=== PATIENT | male | born 1950 | race Caucasian/White ===

== ENCOUNTER → 2023-01-03 10:17 | Outpatient (CLI) | payer OTHER, SELFPAY ==
[2023-01-03 11:05] LABS: Add Manual Diff / Slide Review NO; Basophils Absolute Auto 0 /uL (0-100); Eosinophils Absolute Auto 300 /uL (0-450); Eosinophils Percent Auto 7.5 % (2-4); Hematocrit 41.2 % (41-53); Hemoglobin 14.1 g/dL (13.5-17.5); Lymphocytes Absolute Auto 1100 /uL (1100-4500); Lymphocytes Percent Auto 24.8 % (25-40); Mean Corpuscular HGB Conc 34.4 % (30-36); Mean Corpuscular Hemoglobin 34.1 PG (26-34); Mean Corpuscular Volume 99.3 fL (80-100); Monocytes Absolute Auto 500 /uL (0-900); Monocytes Percent Auto 10.4 % (3-14); Neutrophils Absolute Auto 2500 /uL (1500-7000); Neutrophils Percent Auto 56.3 % (50-75); Platelet Count 207 X10^3/uL (150-400); Red Blood Cell Count 4.15 X10^6/uL (4.5-5.9); Red Cell Distribution Width 12.9 % (11.6-14.8); White Blood Cell Count 4.5 X10^3/uL (4.5-11.0)
[2023-01-03 11:30] LABS: Alanine Aminotransferase 19 IU/L (<50); Albumin Globulin Ratio 1.4 (1.0-2.8); Alkaline Phosphatase 50 U/L (38-126); Aspartate Aminotransferase 23 IU/L (17-59); BUN Creatinine Ratio 17.8 (6-22); Bilirubin Total 0.7 mg/dL (0.2-1.3); Blood Urea Nitrogen 19 mg/dL (9-20); Calcium 8.9 mg/dL (8.4-10.2); Carbon Dioxide 29 mmol/L (22-32); Chloride 102 mmol/L (98-107); Cholesterol 196 mg/dL (140-199); Estimated Glomerular Filt Rate > 60 mL/min (>60); Globulin 2.9 g/dL (1.7-4.1); Glucose 87 mg/dL (80-110); HDL Cholesterol 50 mg/dL (40-60); HEMOLYSIS < 15 (0-50); LDL Cholesterol Calculated 131 mg/dL (<100); Potassium 4.1 mmol/L (3.4-5.1); Sodium 137 mmol/L (137-145); Total Protein 6.9 g/dL (6.3-8.2); Triglycerides 76 mg/dL (35-150)
[2023-01-03 11:56] LABS: Prostate Specific Antigen Scrn 3.47 ng/mL (0.1-4.0)
[2023-01-03 12:02] LABS: Free T4, Direct Thyroxine 1.35 ng/dL (0.78-2.19)
[2023-01-03 12:17] LABS: Thyroid Stimulating Hormone 3.12 uIU/mL (0.47-4.68)
== END ==
PROVIDERS: PCP Family Medicine; Referring Provider Family Medicine; Visit Provider Family Medicine
DX: N20.0 Calculus of kidney (principal); I10 Essential (primary) hypertension; Z12.5 Encounter for screening for malignant neoplasm of prostate; E03.9 Hypothyroidism, unspecified; Z13.6 Encounter for screening for cardiovascular disorders; D64.9 Anemia, unspecified
CPT/HCPCS: 36415; 80053; 80061; 84439; 84443; 85025; G0103

== ENCOUNTER → 2023-02-14 08:55 | Outpatient (CLI) | payer OTHER, SELFPAY ==
--- NOTE | 2023-02-14 08:55 | DI.RAD.S_ITS ---
PROCEDURE: XR KNEE RT 3V INDICATIONS: right knee pain TECHNIQUE: 3 views of the knee were acquired. COMPARISON: None. FINDINGS: Bones: No fractures or dislocations. No suspicious bony lesions. Tricompartmental joint space narrowing with associated osteophytosis. Soft tissues: No joint effusion. No suspicious soft tissue calcifications. IMPRESSION: Moderate tricompartmental osteoarthritis. Kellgren-Bronson Grade 2. Dictated by: Marcelino Ureña M.D. on 02/14/2023 at 13:25 Approved by: Marcelino Ureña M.D. on 02/14/2023 at 13:26
== END ==
PROVIDERS: PCP Family Medicine; Referring Provider Family Medicine; Visit Provider Family Medicine
DX: M17.11 Unilateral primary osteoarthritis, right knee (principal); M25.561 Pain in right knee
CPT/HCPCS: 73562

== ENCOUNTER → 2023-03-21 08:57 | Outpatient (CLI) | payer OTHER, SELFPAY ==
[2023-03-21 11:04] LABS: Alanine Aminotransferase 18 IU/L (<50); Albumin 3.8 g/dL (3.5-5.0); Albumin Globulin Ratio 1.5 (1.0-2.8); Alkaline Phosphatase 43 U/L (38-126); Aspartate Aminotransferase 20 IU/L (17-59); BUN Creatinine Ratio 16.8 (6-22); Bilirubin Total 0.7 mg/dL (0.2-1.3); Blood Urea Nitrogen 17 mg/dL (9-20); Calcium 9.1 mg/dL (8.4-10.2); Carbon Dioxide 29 mmol/L (22-32); Chloride 104 mmol/L (98-107); Estimated Glomerular Filt Rate > 60 mL/min (>60); Globulin 2.6 g/dL (1.7-4.1); Glucose 84 mg/dL (80-110); HEMOLYSIS < 15 (0-50); Potassium 4.1 mmol/L (3.4-5.1); Sodium 138 mmol/L (137-145); Total Protein 6.4 g/dL (6.3-8.2)
== END ==
PROVIDERS: PCP Family Medicine; Referring Provider Physician Assistant Medical; Visit Provider Physician Assistant Medical
DX: I48.0 Paroxysmal atrial fibrillation (principal)
CPT/HCPCS: 36415; 80053

== ENCOUNTER 2024-04-24 09:47 | Emergency (ER) | payer OTHER, SELFPAY ==
[2024-04-24 10:10] VITALS: BP 111/82; PULSE 73; RESP 13; TEMP 35.8; O2SAT 97; BMI 25.0
--- NOTE | 2024-04-24 10:14 | DI.RAD.S_ITS ---
PROCEDURE: XR SHOULDER LT MIN 2V INDICATIONS: shoulder pain TECHNIQUE: 3 views of the shoulder were acquired. COMPARISON: None. FINDINGS: Bones: Mild background degenerative changes. No acute displaced fracture or dislocation. Soft tissues: No suspicious calcifications. IMPRESSION: No acute radiographic abnormality. Mild background degenerative changes. If there is high concern for further derangement, consider MRI evaluation. Dictated by: Dann Villa M.D. on 04/24/2024 at 10:50 Approved by: Dann Villa M.D. on 04/24/2024 at 10:50
--- NOTE | 2024-04-24 11:59 | ED.UPPEXIN ---
HPI - Extremity Injury (Upper) <Luisa Larios PA-C - Last Filed: 04/24/24 12:34> General Chief Complaint: Extremity Injury, Upper Stated Complaint: Left shoulder pain Time Seen by Provider: 04/24/24 11:58 Source: patient Mode of arrival: Ambulatory History of Present Illness HPI narrative: 74-year-old male presents with left shoulder pain. He points to the posterior joint. He states last night while he was sitting up in bed propped up on some pillows he went to turn to his right side he heard his dog yelp which startled him and he lunged forward. He felt immediate popping sensation in the right shoulder. Currently he is complaining of pain with certain movements. Last night he did ice it, he used a topical lidocaine patch and this morning he took Aleve at 9:00 a.m.. He is right-handed dominant. He is denying any previous injury to the shoulder, no numbness, tingling, weakness, and no neck involvement. He did continue to sleep propped up on his pillows. She is denying any chest pain, neck pain, respiratory difficulty, back pain. His doctor is Dr. Bryant who he will see in May of this year. History is significant for osteoarthritis, scoliosis, AFib a flutter he takes Xarelto, spondylolisthesis, uses a heel lift in his right shoe, gout, knee pain recently receiving steroid injections at his doctor's office. All other systems reviewed and are negative. Related Data Home Medications Medication Instructions Recorded Confirmed diltiazem HCl 120 mg 120 mg PO BID 07/15/22 11/13/23 capsule,extended release 24 hr flecainide 50 mg tablet 50 mg PO BID 07/15/22 11/13/23 mecobalamin (vitamin B12) 1,000 1,000 mcg PO DAILY 07/15/22 11/13/23 mcg chewable tablet rivaroxaban 20 mg tablet (Xarelto) 20 mg PO BID 07/15/22 02/14/23 turmeric root extract PO 11/13/23 11/13/23 Allergies Allergy/AdvReac Type Severity Reaction Status Date / Time sodium pentothal AdvReac Mild Uncoded 11/13/23 11:37 Review of Systems <Luisa Larios PA-C - Last Filed: 04/24/24 12:34> Review of Systems Narrative: All other systems reviewed and are negative. Patient History <Luisa Larios PA-C - Last Filed: 04/24/24 12:34> Medical History History of colon polyps Bilateral knee pain Hypertension Osteoarthritis (~2011) Scoliosis Gout (~2011) Fractures Measles (~1954) Hepatitis A (~1975) Chicken pox (~1953) Tinnitus Kidney stones (~1964) Colon polyps Cardiac arrhythmia (~2021) Benign skin lesion of multiple sites Family history of colon cancer Chronic atrial fibrillation (~2005) Surgical History [place] teeth removed Anesthesia History of rotator cuff surgery (~2016) History of abdominal hernia (~2015) History of umbilical hernia repair (~1970) History of inguinal hernia repair (~1951) Family History Father Cancer Mother COPD (chronic obstructive pulmonary disease) Grandfather History of heart disease Grandmother Congestive heart failure Grandfather Alcohol abuse Grandmother History of heart disease Social History Smoking Status: Never smoker Smoking Status: Never smoker alcohol intake frequency: holidays/special occasions only Substance Use Type: does not use Exam <Luisa Larios PA-C - Last Filed: 04/24/24 12:34> Initial Vital Signs Initial Vital Signs: Vital Signs Temperature 96.5 F L 04/24/24 10:10 Pulse Rate 73 04/24/24 10:10 Respiratory Rate 13 04/24/24 10:10 Blood Pressure 111/82 04/24/24 10:10 Pulse Oximetry 97 04/24/24 10:10 Oxygen Delivery Method Room Air 04/24/24 10:10 Vital signs reviewed and are normal. Const Other: Smiling, seated, no distress, he is here with his . Resp Effort & Inspection: normal respiratory effort Auscultation: clear to auscultation bilaterally, no rales, no rhonchi and no wheezes Cardio Rate: regular rate Rhythm: regular rhythm Back/Spine/Pelvis Cervical Spine: cervical ROM normal Thoracic/Lumbar Spine: thoracic and lumbar spine normal to inspection and thoraco-lumbar ROM normal Other: No focal bony midline tenderness. No scapular winging. Extrem Other: Clavicles are symmetric, noted rotational curvature right clavicle more anterior likely due to his underlying scoliosis. Slight elevation to his upper trapezium on the right compared to the left. He has focal tenderness in the posterior left shoulder joint. No guarding. No swelling. No palpable bursa. No discoloration. Active range of motion he has pain with flexion able to rise only 45?. No issues with extension. Pain with abduction limited to 45?. Passive abduction causes him pain but he is able to hold his arm up, negative drop-arm test, empty can is negative. Negative Yergason's, no bicipital tendon tenderness or popping. Anterior lift off test against resistance causes discomfort. Unable to perform posterior. Distal neurovascular is grossly intact. No issues identified with the elbow, wrist, hand, pinch mechanism is intact. Normal capillary refill, sensory is grossly intact. <Debora Alvares DO - Last Filed: 04/29/24 14:31> Initial Vital Signs Initial Vital Signs: Vital Signs Temperature 96.5 F L 04/24/24 10:10 Pulse Rate 73 04/24/24 10:10 Respiratory Rate 13 04/24/24 10:10 Blood Pressure 111/82 04/24/24 10:10 Pulse Oximetry 97 04/24/24 10:10 Oxygen Delivery Method Room Air 04/24/24 10:10 Course <Luisa Larios PA-C - Last Filed: 04/24/24 12:34> Orders Ordered: ED Orders 04/24/24 10:14 XR shoulder LT min 2V Stat Vital Signs Vital signs: Vital Signs - 8 hr 04/24/24 10:10 Temperature 96.5 F L Pulse Rate 73 Respiratory Rate 13 Blood Pressure 111/82 Pulse Oximetry 97 Oxygen Delivery Method Room Air <DO Delonte Robles Last Filed: 04/29/24 14:31> Orders Ordered: ED Orders 04/24/24 10:14 XR shoulder LT min 2V Stat Vital Signs Vital signs: Vital Signs - 8 hr 04/24/24 10:10 Temperature 96.5 F L Pulse Rate 73 Respiratory Rate 13 Blood Pressure 111/82 Pulse Oximetry 97 Oxygen Delivery Method Room Air MDM - Extremity Injury (Upper) <Luisa Larios PA-C - Last Filed: 04/24/24 12:34> Imaging Data Extremity x-ray #1: My Impression: Deferred to radiologist's interpretation below. No acute abnormality. Radiologist's Impression: PROCEDURE: XR SHOULDER LT MIN 2V INDICATIONS: shoulder pain TECHNIQUE: 3 views of the shoulder were acquired. COMPARISON: None. FINDINGS: Bones: Mild background degenerative changes. No acute displaced fracture or dislocation. Soft tissues: No suspicious calcifications. IMPRESSION: No acute radiographic abnormality. Mild background degenerative changes. If there is high concern for further derangement, consider MRI evaluation. Dictated by: Dann Villa M.D. on 04/24/2024 at 10:50 Approved by: Dann Villa M.D. on 04/24/2024 at 10:50 [facility] Narrative Medical decision making narrative: Likely rotator cuff strain versus partial tear. His pain is reproducible and musculoskeletal in nature. Mechanism of injury supports the diagnosis as well. He has pain with abduction and flexion and able to perform limited, he is negative for drop arm or empty can. Discussed following up with his primary care provider, he may benefit from physical therapy, he should message his doctor advising he was seen in the emergency department and request an evaluation and treatment with physical therapy. I have referred him to Orthopedics as well, but asked him to check with his doctor and his medical insurance as he does have [place] just to confirm, I demonstrated modalities including pendulums, I's, Y's, T's, W's, his had a rotator cuff injury as well and she knows some of the rehabilitation exercises as well, she has a resistance band he can use against a doorknob, but I advised him once again not to do any exercise that causes him pain. We just want to avoid a frozen shoulder. Discussed using Tylenol instead of nonsteroidal anti-inflammatories as he takes Xarelto, he is aware of this, discussed continuing his ice, he may alternate heat, continue with those lidocaine [id number] patches, and of course please seek medical attention if any changes or he develops any new worrisome symptoms. Discharge Plan Departure Patient Disposition: Home Clinical Impression: Strain of muscle(s) and tendon(s) of the rotator cuff of left shoulder, initial encounter Instructions: DI for Rotator Cuff Injury Activity Restrictions/Additional Instructions: I believe you have strained her rotator cuff, you may have a partial tear, you will likely benefit from physical therapy, please contact Dr. Bryant's office and ask for a evaluation and treatment referral, I have also listed the orthopedic on-call of the day, I recommend that you also contact their office for an evaluation as well. Continue to ice, you may alternate heat. You may continue the Aleve sparingly, my concern is that you take Xarelto and should probably avoid nonsteroidal anti-inflammatories. You may continue with the lidocaine patch, consider Tylenol instead for pain. Limit your activities avoiding overhead use, try some pendulums as demonstrated, also I's, Y's, T's and W's modalities as tolerated this will keep blood flow to the area and helps activation of these tissues. Stop any activity that causes you pain. Please return to the emergency department if anything worsens. Prescriptions: No Action diltiazem HCl 120 mg capsule,extended release 24hr 120 mg PO BID flecainide 50 mg tablet 50 mg PO BID Xarelto 20 mg tablet 20 mg PO BID mecobalamin (vitamin B12) 1,000 mcg tablet,chewable 1,000 mcg PO DAILY turmeric root extract PO Referrals: Mynor Bryant DO [Primary Care Provider] - Alvin Hardy MD [Physician] - (Left rotator cuff injury, strain versus partial tear.) Stand Alone Forms: Patient Portal/API/Survey ED Sign-out <Debora Alvares DO - Last Filed: 04/29/24 14:31> Cosign ED Attending Tommy Attestation: I was immediately available in the department for consultation.
== END 2024-04-24 12:36 | disposition home or self-care (01) ==
PROVIDERS: Emergency Provider Physician Assistant Medical; PCP Family Medicine
DX: S46.012A Strain of muscle(s) and tendon(s) of the rotator cuff of left shoulder, initial encounter (principal); X58.XXXA Exposure to other specified factors, initial encounter
CPT/HCPCS: 73030; 99281; 99283

== ENCOUNTER → 2024-05-07 19:35 | Outpatient (CLI) | payer OTHER, SELFPAY ==
--- NOTE | 2024-05-07 19:38 | DI.MRI.S_ITS ---
PROCEDURE: MR SHOULDER LT WO CON INDICATIONS: eval L shoulder tare TECHNIQUE: Noncontrast oblique coronal T2 fast spin echo with fat saturation, oblique sagittal T1 spin echo and T2 fast spin echo with fat saturation, axial T1 spin echo and T2 fast spin echo with fat saturation through the shoulder. COMPARISON: None. FINDINGS: Image quality: Excellent. Rotator cuff: Full-thickness rupture involving distal supraspinatus and infraspinatus at their insertions on humeral head is seen with up to 4.1 cm medial retraction of torn tendon fibers to the level of acromioclavicular joint. Distal subscapularis tendinosis is seen. Sagittal images show moderate supraspinatus muscle atrophy and mild infraspinatus muscle atrophy. Bones and bursae: Superior migration of humeral head in relation to glenoid is seen. Marrow edema is noted involving posterior and lateral aspect of humeral head with subcortical cystic area. No acute fracture or dislocation. Moderate acromioclavicular joint osteoarthritic changes are seen. Moderate joint effusion and subacromial subdeltoid bursal fluid, no loose bodies. Capsule and soft tissues: There is fraying of superior anterior glenoid labrum suggestive of superior anterior labral tear. The long head of the biceps tendon demonstrates normal location and morphology. IMPRESSION: 1. Full-thickness rupture of distal supraspinatus and infraspinatus at their insertions on humeral head with up to 4.1 cm medial retraction of torn tendon fibers to the level of acromion. Distal subscapularis tendinosis. Moderate supraspinatus muscle atrophy and mild infraspinatus muscle atrophy. 2. Superior migration of humeral head in relation to glenoid. Contusion versus avulsion injury involving posterior and lateral aspect of humeral head. No acute displaced fracture or dislocation. Moderate acromioclavicular joint osteoarthritis. Moderate joint effusion and subacromial subdeltoid bursal fluid, no gross loose bodies. 3. Suggestion of subtle superior anterior glenoid labral tear. Dictated by: Camden Tidwell M.D. on 05/10/2024 at 20:12 Approved by: Camden Tidwell M.D. on 05/10/2024 at 20:22
== END ==
LOC: MRI 19:36
PROVIDERS: PCP Family Medicine; Referring Provider Family Medicine; Visit Provider Family Medicine
DX: S46.012A Strain of muscle(s) and tendon(s) of the rotator cuff of left shoulder, initial encounter (principal); M62.512 Muscle wasting and atrophy, not elsewhere classified, left shoulder; M19.012 Primary osteoarthritis, left shoulder; M25.412 Effusion, left shoulder; X58.XXXA Exposure to other specified factors, initial encounter
CPT/HCPCS: 73221

== ENCOUNTER → 2024-10-03 10:57 | Outpatient (CLI) | payer OTHER, SELFPAY ==
[2024-10-03 12:15] LABS: Add Manual Diff / Slide Review NO; Basophils Absolute Auto 0 /uL (0-100); Basophils Percent Auto 0.5 % (0-2); Eosinophils Absolute Auto 200 /uL (0-450); Eosinophils Percent Auto 3.9 % (2-4); Hematocrit 45.4 % (41-53); Hemoglobin 15.6 g/dL (13.5-17.5); Lymphocytes Absolute Auto 1300 /uL (1100-4500); Lymphocytes Percent Auto 24.3 % (25-40); Mean Corpuscular HGB Conc 34.3 % (30-36); Mean Corpuscular Hemoglobin 34.8 PG (26-34); Mean Corpuscular Volume 101.2 fL (80-100); Monocytes Absolute Auto 600 /uL (0-900); Monocytes Percent Auto 11.4 % (3-14); Neutrophils Absolute Auto 3300 /uL (1500-7000); Neutrophils Percent Auto 59.9 % (50-75); Platelet Count 198 X10^3/uL (150-400); Red Blood Cell Count 4.48 X10^6/uL (4.5-5.9); White Blood Cell Count 5.5 X10^3/uL (4.5-11.0)
[2024-10-03 12:45] LABS: Alanine Aminotransferase 18 IU/L (<50); Albumin 4.4 g/dL (3.5-5.0); Albumin Globulin Ratio 1.5 (1.0-2.8); Alkaline Phosphatase 56 U/L (38-126); Aspartate Aminotransferase 29 IU/L (17-59); BUN Creatinine Ratio 23.1 (6-22); Bilirubin Total 1.1 mg/dL (0.2-1.3); Blood Urea Nitrogen 24 mg/dL (9-20); Calcium 9.1 mg/dL (8.4-10.2); Carbon Dioxide 25 mmol/L (22-32); Chloride 105 mmol/L (98-107); Cholesterol 205 mg/dL (140-199); Estimated Glomerular Filt Rate > 60 mL/min (>60); Globulin 2.9 g/dL (1.7-4.1); Glucose 94 mg/dL (80-110); HDL Cholesterol 63 mg/dL (40-60); HEMOLYSIS < 15 (0-50); LDL Cholesterol Calculated 122 mg/dL (<100); Potassium 4.2 mmol/L (3.4-5.1); Sodium 138 mmol/L (137-145); Total Protein 7.3 g/dL (6.3-8.2); Triglycerides 102 mg/dL (35-150)
[2024-10-03 13:14] LABS: Prostate Specific Antigen Scrn 4.54 ng/mL (0.1-4.0); TSH w/ Reflex to FT4 3.04 uIU/mL (0.47-4.68)
== END ==
PROVIDERS: PCP Family Medicine; Referring Provider Family Medicine; Visit Provider Family Medicine
DX: I10 Essential (primary) hypertension (principal); Z12.5 Encounter for screening for malignant neoplasm of prostate; M75.102 Unspecified rotator cuff tear or rupture of left shoulder, not specified as traumatic; I48.20 Chronic atrial fibrillation, unspecified
CPT/HCPCS: 36415; 80053; 80061; 84443; 85025; G0103

== ENCOUNTER → 2024-12-11 12:50 | Outpatient (CLI) | payer OTHER, SELFPAY ==
[2024-12-12 11:30] LABS: PSA Free % 24.7 % (.); PSA, Total 5.3 ng/mL (0.0-4.0)
== END ==
PROVIDERS: PCP Family Medicine; Referring Provider Family Medicine; Visit Provider Family Medicine
DX: R97.20 Elevated prostate specific antigen [PSA] (principal)
CPT/HCPCS: 36415; 84153; 84154

== ENCOUNTER → 2024-12-24 16:16 | Outpatient (CLI) | payer OTHER, SELFPAY ==
--- NOTE | 2024-12-24 16:16 | DI.MRI.S_ITS ---
PROCEDURE: MR PELVIC PROSTATE PROTOCOL INDICATIONS: elevated PSA TECHNIQUE: Coronal HASTE, axial T1 FSE with fat saturation, 3-plane nonbreath-hold T2 FSE. After the administration of contrast, dynamic axial, delayed axial and coronal VIBE or 2-D FLASH with fat saturation through the pelvis. Diffusion weighted imaging and ADC was performed. COMPARISON: None. FINDINGS: Image quality: Diffusion weighted and dynamic contrast enhanced images are diagnostic. Prostate: Gland size is 5.4 x 4.8 x 4.7 cm; ellipsoid gland volume is 63 mL. No significant foci of intrinsic T1 hyperintensity to suggest hemorrhage. Multiple BPH nodules. Lesion 1: Location: Left mid gland transitional zone anteriorly Size: 1.2 x 0.9 cm, (4/15). T2W signal: Hypointense. DWI signal: Mildly hyperintense. ADC signal: Markedly hypointense. Enhancement: No definite Extracapsular extension: No. No neurovascular involvement. PI-RADS score: 4 Genitourinary system: Bladder wall thickness is normal. Distal ureters are non distended. Bowel and peritoneum: No pathologic free pelvic fluid. Inferior colon and small bowel loops are normal in caliber. Nodes and vessels: No pelvic or inguinal adenopathy by size criteria. Iliac vessels are normal in caliber. Soft tissues: Fat containing left inguinal hernia. Bones: Marrow demonstrates normal overall signal, without lesions to suggest metastases. IMPRESSION: 1. Prostatomegaly. Multiple BPH nodules. 2. Left mid gland transitional zone anteriorly observation measuring 1.2 cm. PI- RADS 4. 3. No enlarged lymph nodes. Dictated by: Leon Rehman M.D. on 12/25/2024 at 9:28 Approved by: Leon Rehman M.D. on 12/25/2024 at 9:43
== END ==
PROVIDERS: PCP Family Medicine; Referring Provider Family Medicine; Visit Provider Family Medicine
DX: N40.2 Nodular prostate without lower urinary tract symptoms (principal); K40.90 Unilateral inguinal hernia, without obstruction or gangrene, not specified as recurrent; R97.20 Elevated prostate specific antigen [PSA]
CPT/HCPCS: 72197; A9579